=== PATIENT | female | born 1995 | race Hispanic/Latino ===

== ENCOUNTER 2019-06-10 12:18 | Inpatient (IN) | payer BC ==
[~2019-06-10] VITALS: Ht 154.9 cm; Wt 101.0 kg
--- NOTE | 2019-06-10 16:48 | PR ---
[facility] [address] 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 Will place IUPC and FSE and begin pit augmentation. Fetus A: [id number] FHR Baseline: 145 Variability: Minimal - Undetectable to <5bpm Accelerations: 10X10 Decelerations: None FHR Category: Category II Presentation: Vertex Comments on Fetus A: little strip available for review Fetus B: [id number] Signing Physician: Cristina Garzon MD Copies: ~ *Electronically Signed* 06/10/19 1648 CRISTINA GARZON MD PATIENT NAME: PRISCILLA BOWENS PROGRESS NOTE DATE OF : 93 PHYSICIAN: CRISTINA GARZON MD RPT #: [id number] REPORT IS CONFIDENTIAL AND NOT TO BE RELEASED WITHOUT AUTHORIZATION
--- NOTE | 2019-06-10 17:09 | PR ---
[facility] [address] [place], [place] [address] Signed Progress Notes IP Datetime Report Generated by VALERIAN: 06/10/2019 17:09 PROGRESS NOTES: [id number] Impression: Non-reassuring heart rate Procedures: Intrauterine Pressure Catheter; Scalp Electrode; Sterile Vag Exam Plan: Augmentation Other Plans: continue close observation, hold off on pit Informed Consent Obtain: Vaginal Delivery; Risks, Benefits and Alternatives Discussed VITAL SIGNS: [id number] Vital Signs: Reviewed; Within Normal Limits EXAM: [id number] Dilatation: 3.5 Effacement: 90 Station: -2 Uterine Contractions: q 2 to 5 min, mostly poor quality MEMBRANES: [id number] Membrane Status: Intact Comments: Lates and variables present though contractions poor quality. It will not be possible to start pitocin if these continue. Will observe for now. If no improvement, will proceed with C/S. If these improve, will start pitocin augment. Fetus A: [id number] FHR Baseline: 140 Variability: Minimal - Undetectable to <5bpm Accelerations: 15X15 Decelerations: Late; Variable FHR Category: Category II Presentation: Vertex Comments on Fetus A: lates and variables present though contractions poor quality. Fetus B: [id number] Signing Physician: Cristina Garzon MD Copies: ~ *Electronically Signed* 06/10/19 2732 CRISTINA GARZON MD PATIENT NAME: PRISCILLA BOWENS PROGRESS NOTE DATE OF : 93 PHYSICIAN: CRISTINA GARZON MD RPT #: [id number] REPORT IS CONFIDENTIAL AND NOT TO BE RELEASED WITHOUT AUTHORIZATION
--- NOTE | 2019-06-10 18:02 | PR ---
[facility] [address] [place], [place] [address] Signed Progress Notes IP Datetime Report Generated by SATNAM: 06/10/2019 18:02 PROGRESS NOTES: [id number] Impression: Non-reassuring heart rate Procedures: Intrauterine Pressure Catheter; Scalp Electrode; Sterile Vag Exam Other Procedures: pit stopped, position changes Plan: Augmentation Other Plans: continue close observation Informed Consent Obtain: Vaginal Delivery; Risks, Benefits and Alternatives Discussed VITAL SIGNS: [id number] Vital Signs: Reviewed; Within Normal Limits EXAM: [id number] Dilatation: 3.5 Effacement: 90 Station: -2 Uterine Contractions: q 1 to 4 min, gen poor quality MEMBRANES: [id number] Membrane Status: Intact Comments: Episode of recurrent decels though improved currently. She was only on the 1st setting of pit when this stopped because of the decels. If monitor remains reassuring, will restart pitocin in effort to improve the quality of her contractions. Fetus A: [id number] FHR Baseline: 140 Variability: Minimal - Undetectable to <5bpm Accelerations: None Decelerations: Early; Late; Variable FHR Category: Category II Presentation: Vertex Comments on Fetus A: reassuring currently after pitocin off and position changes Fetus B: [id number] Signing Physician: Cristina Garzon MD Copies: ~ *Electronically Signed* 06/10/19 180 CRISTINA GARZON MD PATIENT NAME: PRISCILLA BOWENS PROGRESS NOTE DATE OF : 93 PHYSICIAN: CRISTINA GARZON MD RPT #: [id number] REPORT IS CONFIDENTIAL AND NOT TO BE RELEASED WITHOUT AUTHORIZATION
--- NOTE | 2019-06-10 20:07 | PR ---
[facility] [address] [place], [place] [address] Signed Progress Notes IP Datetime Report Generated by VALERIAN: 06/10/2019 20:07 PROGRESS NOTES: [id number] Impression: Reassuring heart rate; Slow Progression of Labor Procedures: Sterile Vag Exam Other Procedures: pit stopped, position changes Plan: Continue present management Other Plans: continue close observation Informed Consent Obtain: Vaginal Delivery; Risks, Benefits and Alternatives Discussed VITAL SIGNS: N6701575 Vital Signs: Reviewed; Within Normal Limits EXAM: [id number] Dilatation: 3.5 Effacement: 80 Station: -2 Uterine Contractions: q 1 to 3 min, generally poor quality MEMBRANES: [id number] Membrane Status: Intact Comments: No progress though labor pattern still inadequate. Her contractions are frequent but generally poor quality. Will continue to try to get her into a good labor pattern. Changing positions may be better tolerated by the baby at this time as well. Fetus A: [id number] FHR Baseline: 140 Variability: Moderate 6-25bpm Accelerations: 15X15 Decelerations: Late; Variable FHR Category: Category II Presentation: Vertex Comments on Fetus A: reassuring with accel with exam and variability but requires close observation Fetus B: [id number] Signing Physician: Cristina Garzon MD Copies: ~ *Electronically Signed* 06/10/192006 CRISTINA GARZON MD PATIENT NAME: PRISCILLA BOWENS PROGRESS NOTE DATE OF : 93 PHYSICIAN: CRISTINA GARZON MD RPT #: [id number] REPORT IS CONFIDENTIAL AND NOT TO BE RELEASED WITHOUT AUTHORIZATION
--- NOTE | 2019-06-10 22:10 | PR ---
[facility] [address] [place], [place] [address] Signed Progress Notes IP Datetime Report Generated by VALERIAN: 06/10/2019 22:10 PROGRESS NOTES: [id number] Impression: Reassuring heart rate; Slow Progression of Labor Procedures: Sterile Vag Exam Other Procedures: pit stopped, position changes Plan: Anesthesia consult Other Plans: continue close observation Informed Consent Obtain: Vaginal Delivery; Risks, Benefits and Alternatives Discussed VITAL SIGNS: W8488376 Vital Signs: Reviewed VS Notable Details: HTN intermittent EXAM: [id number] Dilatation: 3.5 Effacement: 80 Station: -2 Uterine Contractions: q 1 to 4 min, varying quality MEMBRANES: [id number] Membrane Status: Intact Comments: Not yet comfortable after epidural. She has made no progress since approx 1420. Her contractions have been adequate at times but the pattern is still dysfunctional. Will attempt to make her more comfortable with epidural which may allow for further increase in her pit. I am concerned that she will need C/S for delivery, however. Fetus A: [id number] FHR Baseline: 140 Variability: Moderate 6-25bpm Accelerations: 15X15 Decelerations: Variable FHR Category: Category II Presentation: Vertex Comments on Fetus A: overall reassuring with variability and accels Fetus B: [id number] Signing Physician: Cristina Garzon MD Copies: *Electronically Signed* 06/10/19 0891 CRISTINA GARZON MD PATIENT NAME: PRISCILLA BOWENS PROGRESS NOTE DATE OF : 93 PHYSICIAN: CRISTINA GARZON MD RPT #: [id number] REPORT IS CONFIDENTIAL AND NOT TO BE RELEASED WITHOUT AUTHORIZATION [address] [address] Signed ~ *Electronically Signed* 06/10/192209 CRISTINA GARZON MD PATIENT NAME: PRISCILLA BOWENS PROGRESS NOTE DATE OF : 93 PHYSICIAN: CRISTINA GARZON MD RPT #: [id number] REPORT IS CONFIDENTIAL AND NOT TO BE RELEASED WITHOUT AUTHORIZATION
--- NOTE | 2019-06-11 04:27 | PR ---
[facility] [address] [facility] [place], [place] [address] Signed Progress Notes IP Datetime Report Generated by CPN: 06/11/2019 04:27 PROGRESS NOTES: [id number] Impression: Normal progression of labor Procedures: Sterile Vag Exam Other Procedures: pit stopped, position changes Plan: Continue present management Other Plans: continue close observation Informed Consent Obtain: Vaginal Delivery; Risks, Benefits and Alternatives Discussed VITAL SIGNS: F0510425 Vital Signs: Reviewed; Within Normal Limits VS Notable Details: HTN intermittent EXAM: [id number] Dilatation: 9.0 Effacement: 95 Station: -1 Uterine Contractions: q 2 to 3 min MEMBRANES: [id number] Membrane Status: Intact Comments: Comfortable at this time. Progressing well finally. Will continue. Fetus A: [id number] FHR Baseline: 145 Variability: Moderate 6-25bpm Accelerations: 15X15 Decelerations: Variable FHR Category: Category II Presentation: Vertex Comments on Fetus A: overall reassuring Fetus B: [id number] Signing Physician: Cristina Garzon MD Copies: ~ *Electronically Signed* 06/11/19 0427 CRISTINA GARZON MD PATIENT NAME: PRISCILLA BOWENS PROGRESS NOTE DATE OF : 93 PHYSICIAN: CRISTINA GARZON MD RPT #: [id number] REPORT IS CONFIDENTIAL AND NOT TO BE RELEASED WITHOUT AUTHORIZATION
--- NOTE | 2019-06-12 08:07 | PR ---
[facility] [address] [facility] [place], [place] [address] Signed PP Progress Notes Datetime Report Generated by CPN: 06/12/2019 08:07 SUBJECTIVE: [id number] Pain: Within normal limits Pain Comments: tolerating ambulation Vital Signs: M6670620 Vital Signs: Reviewed Notable Details: tachycardia EXAM: [id number] Cardiovascular: Not Done Respiratory: Not Done Abdomen/Uterus: Abnormal Lochia: Normal Vulva/Perineum: Not Done Breasts: Not Done CVA Tenderness: Not Done Extremities: Normal Incision: Not Applicable Progress: Abnormal Exam Comments: Fundus firm, NT @ U-1. H/H 7.8/24.2, WBC 11.9, plat 177k IMPRESSION/PLAN/PROCEDURES: [id number] Impression: Normal progression; difficulties Plan: Continue present management; consult Procedures: None Progress Notes: Tolerating her anemia though she is tachycardic. She is having issues with breast feeding and will order consult. Signing Physician: Cristina Garzon MD Copies: ~ *Electronically Signed* 06/12/19 0807 CRISTINA GARZON MD PATIENT NAME: PRISCILLA BOWENS PROGRESS NOTE DATE OF : 93 PHYSICIAN: CRISTINA GARZON MD RPT #: [id number] REPORT IS CONFIDENTIAL AND NOT TO BE RELEASED WITHOUT AUTHORIZATION
--- NOTE | 2019-06-13 08:36 | PR ---
[facility] [address] [facility] [place], [place] [address] Signed PP Progress Notes Datetime Report Generated by CPN: 06/13/2019 08:35 SUBJECTIVE: [id number] Pain: Within normal limits Pain Comments: tolerating ambulation Vital Signs: V9002339 Vital Signs: Reviewed; Within Normal Limits Notable Details: tachycardia EXAM: [id number] Cardiovascular: Not Done Respiratory: Not Done Abdomen/Uterus: Abnormal Lochia: Normal Vulva/Perineum: Not Done Breasts: Not Done CVA Tenderness: Not Done Extremities: Normal Incision: Not Applicable Progress: Abnormal Exam Comments: Fundus firm, NT @ U-1. IMPRESSION/PLAN/PROCEDURES: G2036419 Impression: Normal progression; difficulties Other Impression: Not really breast feeding at this time. Plan: Discharge Procedures: None Progress Notes: She is doing well but not breast feeding though she says she would like to do this. Reinforced need to actually breast feed if this is desired. Signing Physician: Cristina Garzon MD Copies: ~ *Electronically Signed* 06/13/19 0835 CRISTINA GARZON MD PATIENT NAME: PRISCILLA BOWENS PROGRESS NOTE DATE OF : 93 PHYSICIAN: CRISTINA GARZON MD RPT #: [id number] REPORT IS CONFIDENTIAL AND NOT TO BE RELEASED WITHOUT AUTHORIZATION
== END 2019-06-13 12:20 | disposition home or self-care (01) | DRG 768 ==
LOC: FBCO 12:18 → FBC 12:45
PROVIDERS: ADMIT Obstetrics & Gynecology
PROC: 10H07YZ Insertion of Other Device into Products of Conception, Via Natural or Artificial Opening (ICD-10-PCS; 2019-06-10)
PROC: 10907ZC Drainage of Amniotic Fluid, Therapeutic from Products of Conception, Via Natural or Artificial Opening (ICD-10-PCS; 2019-06-10)
PROC: 00HU33Z Insertion of Infusion Device into Spinal Canal, Percutaneous Approach (ICD-10-PCS; 2019-06-10)
PROC: 3E0R3BZ Introduction of Anesthetic Agent into Spinal Canal, Percutaneous Approach (ICD-10-PCS; 2019-06-10)
PROC: 10E0XZZ Delivery of Products of Conception, External Approach (ICD-10-PCS; principal; 2019-06-11)
PROC: 0DQR0ZZ Repair Anal Sphincter, Open Approach (ICD-10-PCS; 2019-06-11)
DX: O99.214 Obesity complicating childbirth (principal); Z37.0 Single live birth; E66.9 Obesity, unspecified; Z3A.40 40 weeks gestation of pregnancy; O77.0 Labor and delivery complicated by meconium in amniotic fluid; O70.20 Third degree perineal laceration during delivery, unspecified; O90.81 Anemia of the puerperium; D64.9 Anemia, unspecified; J45.20 Mild intermittent asthma, uncomplicated; O99.52 Diseases of the respiratory system complicating childbirth; O28.0 Abnormal hematological finding on antenatal screening of mother; Z79.899 Other long term (current) drug therapy
CPT/HCPCS: 01960; 36415; 85027; A9270; J2590; J2795; J3010; J7121

== ENCOUNTER 2022-12-08 05:05 | Inpatient (IN) | payer BC, OTHER ==
[~2022-12-08] VITALS: Ht 157.5 cm; Wt 103.4 kg
--- OUTSIDE RECORDS SUMMARY | ~2022-12-08 | XMS | Continuity of Care Document ---
Demographics + + + | Address | [address] | | | [place] [address] | + + + | Preferred Language | Unknown | + + + | Marital Status | Never | + + + | Scientologist Affiliation | Unknown | + + + | Race | Unknown | + + + | Ethnic Group | Unknown | + + + Author + + + | Author | [facility] | + + + | Organization | [facility] | + + + | Address | [address] | | | [place] [address] | + + + | Phone | | + + + Care Team Providers + + + + | Care Loan Review Manager Name | Role | Phone | + + + + Unavailable | Unavailable | + + + + Allergies and Intolerances + + + + + | date | description | facility | type | + + + + + | (no date) | No Known Drug | [facility] | (unknown) | | | Allergies | | | + + + + + Encounters No information. Functional Status No information. Immunizations No information. Medications No information. Problems + + + + | date | description | facility | + + + + | 2022-04-29 08:03 | ENCOUNTER FOR | [facility] | | | SCREENING FOR UNCERTAIN | | | | DATES | | + + + + | 2022-07-30 15:40 | ENCOUNTER FOR | [facility] | | | SCREENING FOR UNCERTAIN | | | | DATES | | + + + + | 2022-10-01 08:01 | ENCOUNTER FOR SUPRVSN OF | [facility] | | | NORMAL , THIRD | | | | TRIMESTER | | + + + + | 2022-10-01 08:01 | 32 WEEKS GESTATION OF | [facility] | | | | | + + + + | 2022-10-01 09:45 | GESTATIONAL DIABETES | [facility] | | | MELLITUS IN PREGNAN | | + + + + | 2022-10-01 09:45 | WEEKS OF GESTATION OF | [facility] | | | NOT SPECIFIED | | + + + + | 2022-10-01 09:45 | DIETARY COUNSELING AND | [facility] | | | SURVEILLANCE | | + + + + | 2022-10-08 09:12 | GESTATIONAL DIABETES | [facility] | | | MELLITUS IN , UNSP | | | | CONTROL | | + + + + | 2022-10-22 07:00 | ENCOUNTER FOR SUPRVSN OF | [facility] | | | NORMAL , THIRD | | | | TRIMESTER | | + + + + | 2022-10-29 14:54 | GESTATIONAL DIABETES | [facility] | | | MELLITUS IN , UNSP | | | | CONTROL | | + + + + | 2022-10-29 14:54 | 33 WEEKS GESTATION OF | [facility] | | | | | + + + + | 2022-11-05 15:08 | GESTATIONAL DIABETES | [facility] | | | MELLITUS IN , UNSP | | | | CONTROL | | + + + + | 2022-11-05 15:08 | 34 WEEKS GESTATION OF | [facility] | | | | | + + + + | 2022-11-12 20:08 | MATERNAL CARE FOR BREECH | [facility] | | | PRESENTATION, UNSP | | + + + + | 2022-11-12 20:08 | MATERNAL CARE FOR EXCESS | [facility] | | | GROWTH, THIRD TRIME | | + + + + | 2022-11-12 20:08 | ENCOUNTER FOR SUPRVSN OF | [facility] | | | NORMAL , THIRD | | | | TRIMESTER | | + + + + | 2022-11-12 20:08 | 38 WEEKS GESTATION OF | [facility] | | | | | + + + + | 2022-11-19 09:54 | GESTATIONAL DIABETES | [facility] | | | MELLITUS IN , UNSP | | | | CONTROL | | + + + + | 2022-11-19 09:54 | 36 WEEKS GESTATION OF | [facility] | | | | | + + + + | 2022-11-26 04:56 | MATERNAL CARE FOR BREECH | [facility] | | | PRESENTATION, UNSP | | + + + + | 2022-12-03 15:59 | UTERINE SIZE-DATE | [facility] | | | DISCREPANCY, THIRD TRI | | + + + + | 2022-12-03 15:59 | UTERINE SIZE-DATE | [facility] | | | DISCREPANCY, THIRD | | | | TRIMESTER | | + + + + | 2022-12-03 15:59 | ENCOUNTER FOR SUPRVSN OF | [facility] | | | NORMAL PREGNANC | | + + + + | 2022-12-03 15:59 | 39 WEEKS GESTATION OF | [facility] | | | | | + + + + | 2022-12-03 16:00 | UTERINE SIZE-DATE | [facility] | | | DISCREPANCY, THIRD TRI | | + + + + | 2022-12-03 16:00 | ENCOUNTER FOR SUPRVSN OF | [facility] | | | NORMAL PREGNANC | | + + + + | 2022-12-08 05:05 | GESTATIONAL DIABETES IN | [facility] | | | , INSUL | | + + + + | 2022-12-08 05:05 | MATERNAL CARE FOR BREECH | [facility] | | | PRESENTATION, U | | + + + + | 2022-12-08 05:05 | 39 WEEKS GESTATION OF | [facility] | | | | | + + + + | 2022-12-08 07:15 | GESTATIONAL DIABETES IN | [facility] | | | , INSUL | | + + + + | 2022-12-08 07:15 | MATERNAL CARE FOR BREECH | [facility] | | | PRESENTATION, U | | + + + + | 2022-12-08 07:15 | 39 WEEKS GESTATION OF | [facility] | | | | | + + + + | 2022-12-08 08:00 | GESTATIONAL DIABETES IN | [facility] | | | , INSUL | | + + + + | 2022-12-08 08:00 | MATERNAL CARE FOR BREECH | [facility] | | | PRESENTATION, U | | + + + + | 2022-12-08 08:00 | 39 WEEKS GESTATION OF | [facility] | | | | | + + + + Procedures No information. Results/Labs No information. Social History No information. Vital Signs No information."
[2022-12-08 05:52] VITALS: BP 126/73
--- NOTE | 2022-12-08 12:20 | PR ---
[facility] [address] [place], [place] [address] Signed Progress Notes IP Datetime Report Generated by CPN: 12/08/2022 12:20 PROGRESS NOTES: [id number] Impression: Reassuring Heart Rate Procedures: Sterile Vag Exam Other Procedures: U/S confirms VTX Plan: Continue Present Management VITAL SIGNS: B7942129 Vital Signs: Reviewed; Within Normal Limits EXAM: Z4595408 Dilatation: 0.0 Effacement: 25 Station: -3 Contractions: occ MEMBRANES: [id number] Comments: Anesthetic still has not worn off. Insulin drip has been started. Baby remains VTX. Will repeat Cytotec now. FETUS A: [id number] FHR Baseline: 125 Variability: Moderate 6-25bpm Accelerations: 15X15 Decelerations: None FHR Category: Category I Presentation: Transverse Comments on Fetus A: no evidence of metabolic acidosis FETUS B: [id number] Signing Physician: Cristina Garzon MD Copies: ~ *Electronically Signed* 12/08/22 1220 CRISTINA GARZON MD PATIENT NAME: PRISCILLA BOWENS PROGRESS NOTE DATE OF : 93 PHYSICIAN: CRISTINA GARZON MD RPT #: [id number] REPORT IS CONFIDENTIAL AND NOT TO BE RELEASED WITHOUT AUTHORIZATION
--- NOTE | 2022-12-08 19:13 | PR ---
[facility] [address] [place], [place] [address] Signed Progress Notes IP Datetime Report Generated by CPN: 12/08/2022 19:13 PROGRESS NOTES: A1745104 Impression: Non-reassuring Heart Rate Procedures: Sterile Vag Exam Other Procedures: U/S confirms VTX Plan: Continue Present Management Other Plans: change in position VITAL SIGNS: V3742563 Vital Signs: Reviewed; Within Normal Limits EXAM: Q3062795 Dilatation: 1.0 Effacement: 25 Station: -3 Contractions: occ MEMBRANES: A2687486 Comments: Getting uncomfortable from contractions. Glucose levels under good control. She has made some progress though it has been very slow. status has previously been reassuring. Will repeat Cytotec now and replace epidural prior to recheck given the amount of discomfort from this exam. FETUS A: [id number] FHR Baseline: 125 Variability: Moderate 6-25bpm Accelerations: 15X15 Decelerations: None FHR Category: Category I Presentation: Transverse Comments on Fetus A: no evidence of metabolic acidosis FETUS B: [id number] Signing Physician: Cristina Garzon MD Copies: ~ *Electronically Signed* 12/08/221912 CRISTINA GARZON MD PATIENT NAME: PRISCILLA BOWENS PROGRESS NOTE DATE OF : 93 PHYSICIAN: CRISTINA GARZON MD RPT #: [id number] REPORT IS CONFIDENTIAL AND NOT TO BE RELEASED WITHOUT AUTHORIZATION
--- NOTE | 2022-12-08 22:35 | PR ---
[facility] [address] [facility] [place], [place] [address] Signed Progress Notes IP Datetime Report Generated by CPN: 12/08/2022 22:35 PROGRESS NOTES: [id number] Impression: Normal Progression of Labor; Reassuring Heart Rate Procedures: Artificial ROM; Scalp Electrode Other Procedures: U/S confirms VTX Plan: Continue Present Management Other Plans: change in position VITAL SIGNS: T4686515 Vital Signs: Reviewed; Within Normal Limits EXAM: S9499924 Dilatation: 3.0 Effacement: 70 Station: -3 Contractions: occ MEMBRANES: N1861190 ROM Note: AROM with FSE Comments: Comfortable after epidural. Progressing now. Sugars have been good with minimal insulin today. Will continue. FETUS A: [id number] FHR Baseline: 125 Variability: Moderate 6-25bpm Accelerations: 15X15 Decelerations: None FHR Category: Category I Presentation: Transverse Comments on Fetus A: no evidence of metabolic acidosis FETUS B: [id number] Signing Physician: Cristina Garzon MD Copies: ~ *Electronically Signed* 12/08/22 5829 CRISTINA GARZON MD PATIENT NAME: PRISCILLA BOWENS PROGRESS NOTE DATE OF : 93 PHYSICIAN: CRISTINA GARZON MD RPT #: [id number] REPORT IS CONFIDENTIAL AND NOT TO BE RELEASED WITHOUT AUTHORIZATION
--- NOTE | 2022-12-09 06:55 | PR ---
[facility] [address] [place], [place] [address] Signed Progress Notes IP Datetime Report Generated by SATNAM: 12/09/2022 06:55 PROGRESS NOTES: [id number] Impression: Reassuring Heart Rate Procedures: Intrauterine Pressure Catheter; Sterile Vag Exam Other Procedures: U/S confirms VTX Plan: Continue Present Management Other Plans: change in position VITAL SIGNS: [id number] Vital Signs: Reviewed; Within Normal Limits EXAM: [id number] Dilatation: 4.0 Effacement: 75 Station: -2 Contractions: occ MEMBRANES: [id number] ROM Note: AROM with FSE Comments: Very slow progress--1 cm in 7 hrs. Baby has remained VTX but is asynclitic. Has been on pit but contraction pattern difficult to discern prior to placement of the IUPC. Pattern after IUPC shows strong regular contractions but they are frequent. Will decrease pitocin now and continue to change her positions in effort to improve baby's position. Unclear whether or not labor will result in vaginal delivery. FETUS A: [id number] FHR Baseline: 125 Variability: Moderate 6-25bpm Accelerations: 15X15 Decelerations: None FHR Category: Category I Presentation: Transverse Comments on Fetus A: no evidence of metabolic acidosis FETUS B: [id number] Signing Physician: Cristina Garzon MD Copies: ~ *Electronically Signed* 12/09/22 0655 CRISTINA GARZON MD PATIENT NAME: PRISCILLA BOWENS PROGRESS NOTE DATE OF : 93 PHYSICIAN: CRISTINA GARZON MD RPT #: [id number] REPORT IS CONFIDENTIAL AND NOT TO BE RELEASED WITHOUT AUTHORIZATION
--- NOTE | 2022-12-09 08:46 | PR ---
[facility] [facility] [address] [facility] [place], [place] [address] Signed Progress Notes IP Datetime Report Generated by CPN: 12/09/2022 08:46 PROGRESS NOTES: [id number] Impression: Normal Progression of Labor; Reassuring Heart Rate Procedures: Sterile Vag Exam Other Procedures: U/S confirms VTX Plan: Continue Present Management Other Plans: change in position VITAL SIGNS: W6684111 Vital Signs: Reviewed; Within Normal Limits EXAM: [id number] Dilatation: 4.0 Effacement: 75 Station: -2 Contractions: occ MEMBRANES: [id number] ROM Note: AROM with FSE Comments: Making some progress though fetus still asynclitic. Will continue position changes and same dose of pit for now. FETUS A: [id number] FHR Baseline: 125 Variability: Moderate 6-25bpm Accelerations: 15X15 Decelerations: None FHR Category: Category I Presentation: Transverse Comments on Fetus A: no evidence of metabolic acidosis FETUS B: [id number] Signing Physician: Cristina Garzon MD Copies: ~ *Electronically Signed* 12/09/22 0846 CRISTINA GARZON MD PATIENT NAME: PRISCILLA BOWENS PROGRESS NOTE DATE OF : 93 PHYSICIAN: CRISTINA GARZON MD RPT #: [id number] REPORT IS CONFIDENTIAL AND NOT TO BE RELEASED WITHOUT AUTHORIZATION
--- NOTE | 2022-12-09 11:22 | PR ---
[facility] [address] [facility] [place], [place] [address] Signed Progress Notes IP Datetime Report Generated by CPN: 12/09/2022 11:22 PROGRESS NOTES: [id number] Impression: Normal Progression of Labor; Reassuring Heart Rate Procedures: Sterile Vag Exam Other Procedures: U/S confirms VTX Plan: Continue Present Management Other Plans: begin pushing VITAL SIGNS: L5368929 Vital Signs: Reviewed; Within Normal Limits EXAM: G8003718 Dilatation: 10.0 Effacement: 100 Station: -2 Contractions: occ MEMBRANES: I7698149 ROM Note: AROM with FSE Comments: Progressing. Still slava frequently though pitocin has been stopped. Will begin pushing now. FETUS A: [id number] FHR Baseline: 125 Variability: Moderate 6-25bpm Accelerations: 15X15 Decelerations: None FHR Category: Category I Presentation: Transverse Comments on Fetus A: no evidence of metabolic acidosis FETUS B: [id number] Signing Physician: Cristina Garzon MD Copies: ~ *Electronically Signed* 12/09/22 1122 CRISTINA GARZON MD PATIENT NAME: PRISCILLA BOWENS PROGRESS NOTE DATE OF : 93 PHYSICIAN: CRISTINA GARZON MD RPT #: [id number] REPORT IS CONFIDENTIAL AND NOT TO BE RELEASED WITHOUT AUTHORIZATION
--- NOTE | 2022-12-09 13:46 | PR ---
[facility] [address] [place], [place] [address] Signed Progress Notes IP Datetime Report Generated by SATNAM: 12/09/2022 13:46 PROGRESS NOTES: [id number] Impression: Arrest of Dilatation/Descent; Reassuring Heart Rate Procedures: Sterile Vag Exam Other Procedures: U/S confirms VTX Plan: Deliver- Section Other Plans: begin pushing Informed Consent Obtain: Section Delivery; Risks, Benefits and Alternatives Discussed VITAL SIGNS: [id number] Vital Signs: Reviewed; Within Normal Limits EXAM: [id number] Dilatation: 10.0 Effacement: 100 Station: -2 Contractions: occ MEMBRANES: [id number] ROM Note: AROM with FSE Comments: Has made minimal progress with her pushing over 2 hrs. I do feel she would be better served by proceeding with . The risks of including the risks of bleeding and infection were discussed. The risks of blood loss is increased given her long labor. They had no questions and requested no further information. FETUS A: [id number] FHR Baseline: 125 Variability: Moderate 6-25bpm Accelerations: 15X15 Decelerations: None FHR Category: Category I Presentation: Transverse Comments on Fetus A: no evidence of metabolic acidosis FETUS B: [id number] Signing Physician: Cristina Garzon MD Copies: ~ *Electronically Signed* 12/09/22 1346 CRISTINA GARZON MD PATIENT NAME: PRISCILLA BOWENS PROGRESS NOTE DATE OF : [birth year] PHYSICIAN: CRISTINA GARZON MD RPT #: [id number] REPORT IS CONFIDENTIAL AND NOT TO BE RELEASED WITHOUT AUTHORIZATION
--- NOTE | 2022-12-09 15:34 | NUR ---
12/09/22 1534 AvinashEden 1520- PT ARRIVES TO UNIT VIA BED FROM OR. PT IS A&O X4 AND REPORTS NO PAIN OR NAUSEA AT THIS TIME. FATHER IS AT BEDSIDE. PT RESPIRATIONS ARE EVEN AND UNLABORED, O2 >90% ON RA AT THIS TIME. BAIRD DRAINING TO GRAVITY. IV SITE WNL. PT HOB AT 30 DEGREES AT THIS TIME.
[2022-12-09 16:17] VITALS: BP 114/85
--- NOTE | 2022-12-10 08:45 | PR ---
[facility] [address] [facility] [place], [place] [address] Signed PP Progress Notes Datetime Report Generated by CPN: 12/10/2022 08:45 SUBJECTIVE: [id number] Pain: Within Normal Limits Nausea/Vomiting: Denies Vital Signs: [id number] Vital Signs: Reviewed Notable Details: mild intermittent HTN EXAM: Ongoing Cardiovascular: Normal Respiratory: Normal Abdomen/Uterus: Abnormal Lochia: Normal Vulva/Perineum: Not Done Breasts: Not Done CVA Tenderness: Not Done Extremities: Normal Incision: Normal Progress: Abnormal Exam Comments: Abdomen with active BS. Fundus firm, NT @ U-1 H/H 10.2/31.9, WBC 15.1, plat 180k IMPRESSION/PLAN/PROCEDURES: [id number] Impression: Normal Progression; Difficulties Other Impression: Nausea resolved, mild intermittent HTN Other Plans: increase ambulation, shower Progress Notes: Doing well overall but has felt dizzy when up. H/H is reasonable postop. Will increase ambulation slowly. Signing Physician: Cristina Garzon MD Copies: ~ *Electronically Signed* 12/10/22 0845 CRISTINA GARZON MD PATIENT NAME: PRISCILLA BOWENS PROGRESS NOTE DATE OF : [birth year] PHYSICIAN: CRISTINA GARZON MD RPT #: [id number] REPORT IS CONFIDENTIAL AND NOT TO BE RELEASED WITHOUT AUTHORIZATION
--- NOTE | 2022-12-11 07:25 | PR ---
[facility] [address] [facility] [place], [place] [address] Signed PP Progress Notes Datetime Report Generated by SATNAM: 12/11/2022 07:25 SUBJECTIVE: [id number] Pain: Within Normal Limits Nausea/Vomiting: Denies Flatus: Yes Vital Signs: [id number] Vital Signs: Reviewed; Within Normal Limits Notable Details: mild intermittent HTN EXAM: Ongoing Cardiovascular: Normal Respiratory: Normal Abdomen/Uterus: Abnormal Lochia: Normal Vulva/Perineum: Not Done Breasts: Not Done CVA Tenderness: Not Done Extremities: Normal Incision: Normal Progress: Abnormal Exam Comments: Abdomen with active BS. Fundus firm, NT @ U-1. IMPRESSION/PLAN/PROCEDURES: [id number] Impression: Normal Progression Other Impression: Nausea resolved, mild intermittent HTN Plan: Discharge Other Plans: increase ambulation, shower Procedures: None Progress Notes: Doing well. She is ready for discharge. Signing Physician: Cristina Garzon MD Copies: ~ *Electronically Signed* 12/11/22 0725 CRISTINA GARZON MD PATIENT NAME: PRISCILLA BOWENSDERA PROGRESS NOTE DATE OF : [birth year] PHYSICIAN: CRISTINA GARZON MD RPT #: [id number] REPORT IS CONFIDENTIAL AND NOT TO BE RELEASED WITHOUT AUTHORIZATION
--- NOTE | 2022-12-22 05:10 | OR ---
[facility] [address] [place], [place] [address] Signed DATE OF OPERATION: 12/09/2022 SURGEON: Cristina Garzon MD ELECTRICAL ESTIMATOR: Pedro Pizarro MD PREOPERATIVE DIAGNOSES: Failure to descend, persistent posterior, insulin dependent gestational diabetes. POSTOPERATIVE DIAGNOSES: Failure to descend, persistent posterior, insulin-dependent gestational diabetes, delivered. PROCEDURE: Primary section with low segment transverse uterine incision. ANESTHESIA: Epidural. ESTIMATED BLOOD LOSS: 750 mL. DRAINS: Aguilar catheter. INDICATIONS AND FINDINGS: The patient was admitted on the for version with a history of unstable lie. The baby was transverse on her admission confirmed by ultrasound. After placement of her epidural the baby was found to be vertex though very high. Because of the unstable lie and her insulin dependent gestational diabetes, induction was begun. She received several doses of Cytotec and eventually underwent AROM and pitocin augmentation. She progressed slowly to complete. She began pushing and after 2 hrs of pushing with good effort, there was no significant descent of the vertex. Discussed with patient and felt was in her best interest given the lack of descent. She was taken to the operating room where she was delivered of a little boy via lower segment transverse uterine incision from the ROP position with Apgars of 9 and 9 and weight of 8 pounds and 1 ounce. The uterus, tubes, ovaries, and placenta were otherwise normal. Electronically Signed By: CRISTINA GARZON MD 12/10/22 1257 Electronically Signed By: CRISTINA GARZON MD 12/22/22 0510 PATIENT NAME: PRISCILLA BOWENS OPERATIVE REPORT DATE OF : [birth year] REPORT #: [id number] PHYSICIAN: CRISTINA GARZON MD PCP: NO PRIMARY CARE PHYSICIAN REPORT IS CONFIDENTIAL AND NOT TO BE RELEASED WITHOUT AUTHORIZATION [facility] [address] [place], [place] [address] Signed DESCRIPTION OF PROCEDURE: The patient was prepped and draped in the supine position. A Pfannenstiel skin incision was made and carried down through the fascia. The incision was extended laterally. The inferior and superior fascial flaps were then created. The muscles were bluntly divided and the peritoneum entered and the incision extended bluntly. The Ugo retractor was placed. The uterine incision was made at the upper aspect of the peritoneal reflection. The baby was delivered with the above findings and handed off to the pediatric staff in attendance. The placenta was removed manually and the uterus explored with a lap tape assuring no remaining fragments. The edges of the incision were identified. There was noted to be an extension on the patient's right. Given this, this extension was identified and was closed with a running locking stitch of 0 Monocryl. The remaining incision was closed with a running locking stitch of 0 Monocryl. A 2nd layer was placed, which was an imbricating suture. The abdomen was then copiously irrigated, inspected and bleeding points controlled with cautery. This area was hemostatic and preparations made for closure with removal of the Ugo retractor. The peritoneum was identified and was closed with a running suture of 3-0 Vicryl. The muscles were brought together with interrupted sutures of 0 Vicryl. Bleeding points were controlled over the muscle with cautery. The fascia was then closed from each angle to the midline with a running suture of 0 Vicryl. The subcu space was irrigated and closed with interrupted sutures of 3-0 Vicryl after assuring hemostasis. The skin was closed with rebecca. All sponge and needle counts were correct. She tolerated the procedure well and was taken to the recovery room in good condition. MD TACO Pérez/MODL /[id number] Copies: ~ Electronically Signed By: CRISTINA GARZON MD 12/10/22 1257 Electronically Signed By: CRISTINA GARZON MD 12/22/22 0510 PATIENT NAME: PRISCILLA BOWENS OPERATIVE REPORT DATE OF : [birth year] REPORT #: [id number] PHYSICIAN: CRISTINA GARZON MD PCP: NO PRIMARY CARE PHYSICIAN REPORT IS CONFIDENTIAL AND NOT TO BE RELEASED WITHOUT AUTHORIZATION
== END 2022-12-11 11:45 | disposition home or self-care (01) | DRG 788 ==
LOC: FBCO 05:05 → DS 07:15 → FBCO 07:15 → FBC 08:00
PROVIDERS: ADMIT Obstetrics & Gynecology; ATTEND Obstetrics & Gynecology
PROC: 10907ZC Drainage of Amniotic Fluid, Therapeutic from Products of Conception, Via Natural or Artificial Opening (ICD-10-PCS; principal; 2022-12-08)
PROC: 00HU33Z Insertion of Infusion Device into Spinal Canal, Percutaneous Approach (ICD-10-PCS; 2022-12-08)
PROC: 3E0R3BZ Introduction of Anesthetic Agent into Spinal Canal, Percutaneous Approach (ICD-10-PCS; 2022-12-08)
PROC: 10H07YZ Insertion of Other Device into Products of Conception, Via Natural or Artificial Opening (ICD-10-PCS; 2022-12-08)
PROC: 4A1HXCZ Monitoring of Products of Conception, Cardiac Rate, External Approach (ICD-10-PCS; 2022-12-08)
PROC: 3E0P7VZ Introduction of Hormone into Female Reproductive, Via Natural or Artificial Opening (ICD-10-PCS; 2022-12-08)
PROC: 10D00Z1 Extraction of Products of Conception, Low, Open Approach (ICD-10-PCS; 2022-12-09)
DX: O24.424 Gestational diabetes mellitus in childbirth, insulin controlled (principal); O32.1XX0 Maternal care for breech presentation, not applicable or unspecified; O36.63X0 Maternal care for excessive fetal growth, third trimester, not applicable or unspecified; Z67.40 Type O blood, Rh positive; Z37.0 Single live birth; Z3A.39 39 weeks gestation of pregnancy
CPT/HCPCS: 01961; 36415; 85027; 86850; 86900; 86901; A9270; J0456; J0690; J1100; J1644; J1815; J1885; J2274; J2405; J2590; J2765; J3010; J7042; J7121

== ENCOUNTER 2024-09-09 05:59 | Emergency (ER) | payer BC, OTHER ==
[~2024-09-09] VITALS: Ht 152.4 cm; Wt 105.3 kg
[2024-09-09 06:26] LABS: BILIRUBIN, URINE NEGATIVE (negative); BLOOD/HGB, URINE TRACE-I (Negative); KETONE, URINE NEGATIVE (Negative); LEUK ESTERASE, URINE NEGATIVE (negative); NITRITE, URINE NEGATIVE (negative)
[2024-09-09] MEDS ORDERED: KETOROLAC TROMETHAMINE 30 MG/ML VIAL IV ONE (06:30)
[2024-09-09] MEDS ORDERED: FAMOTIDINE 20 MG/ 2 ML VIAL IV ONE (06:30)
[2024-09-09] MEDS ORDERED: ondansetron HCL 4 MG/2 ML VIAL IV ONE (06:30)
[2024-09-09] MEDS ORDERED: LACTATED RINGER'S 1,000 ML IV SCH (06:30)
[2024-09-09 06:34] LABS: BACTERIA, URINE NONE SEEN /hpf (negative); CASTS, URINE NONE SEEN \\lpf; COLLECTION TYPE, URINE CLEAN CATCH; CRYSTALS, URINE NONE SEEN (0-1+); EPITHELIAL CELLS, URINE SQUAMOUS 1+ /lpf (0-1+); REFLEX CULTURE, URINE No (No)
[2024-09-09 06:37] LABS: BASOPHILS 0.9 % (0-2); EOSINOPHILS 1.6 % (0-6); HEMATOCRIT 39.6 % (35.0-50.0); HEMOGLOBIN 13.4 g/dL (12.0-18.0); LYMPHOCYTES 21.1 % (24-44); MCV 79.5 fl (81-99); MONOCYTES 4.2 % (0-12); NEUTROPHILS 72.2 % (39-80); PLATELET COUNT 271 K/uL (140-440); RBC 4.97 M/ul (4.3-5.7); RDW 14.2 (10.5-15.0)
[2024-09-09 06:53] LABS: ALBUMIN 3.8 g/dL (3.4-5.0); ANION GAP 14.2 (7-21); BILIRUBIN, TOTAL 0.5 mg/dL (0.2-1.0); BUN/CREATININE RATIO 11.59 (6.0-28.6); CALCIUM 9.2 mg/dL (8.5-10.1); CREATININE, SERUM 0.69 mg/dL (0.55-1.02); POTASSIUM 4.2 mmol/L (3.5-5.1); PROTEIN, TOTAL 7.6 g/dL (6.4-8.2)
[2024-09-09 09:06] VITALS: BP 111/76
== END 2024-09-09 09:07 | disposition home or self-care (01) ==
LOC: ED 05:59
PROVIDERS: Internal Medicine
DX: R10.13 Epigastric pain (principal)
CPT/HCPCS: 36415; 76705; 80053; 81001; 83690; 84703; 85025; 96374; 96375; 99284-25; J1885; J2405; J7121